=== PATIENT | male | born 1975 | race Caucasian/White ===

== ENCOUNTER 2018-10-06 14:51 | Emergency (ER) | payer BC, SELFPAY ==
[2018-10-06] MEDS ORDERED: Fentanyl 100 MCG/2 ML VIAL ONE (15:33)
[2018-10-06] MEDS ORDERED: Midazolam HCl 5 mg/ml Vial ONE (15:34)
[2018-10-06] MEDS ORDERED: Sodium Chloride 0.9% 1,000 ML ONE (15:34)
--- NOTE | 2018-10-06 15:57 | RAD ---
RADIOGRAPH RIGHT SHOULDER 3 VIEWS: Date: 10/06/18 Time: 1503 hours HISTORY: 43-year-old male status post acute right shoulder traumatic injury due to fall. COMPARISON: None. FINDINGS: The humeral head is dislocated anteriorly and inferiorly relative to the glenoid. No definite acute f racture is identified. IMPRESSION: Acute, traumatic, anterior-inferior dislocation of the glenohumeral joint. POS: [facility]
--- NOTE | 2018-10-06 17:04 | RAD ---
RADIOGRAPH RIGHT SHOULDER 3 VIEWS: DATE: 10/06/2018. TIME: 4:06 p.m. HISTORY: A 43-year-old male with traumatic right anterior shoulder dislocation, status post reduction. COMPARISON: 10/06/2018, 3:03 p.m. FINDINGS: The glenohumeral joint is now located. There is a Hill-Sachs defect at the superolateral aspect of t he humeral head. IMPRESSION: Successful reduction of the acute, traumatic, anterior-inferior dislocation of the glenohumeral joint . POS: [facility]
== END 2018-10-06 17:15 | disposition home or self-care (01) ==
LOC: NAV ERS 14:51
DX: S43.014A Anterior dislocation of right humerus, initial encounter (principal); S43.034A Inferior dislocation of right humerus, initial encounter; F17.290 Nicotine dependence, other tobacco product, uncomplicated; W18.30XA Fall on same level, unspecified, initial encounter
CPT/HCPCS: 23650; 94760; 96361; 96374; 96375; 99152; J2250; J3010; J7050

== ENCOUNTER 2018-12-15 06:30 | Emergency (ER) | payer SELFPAY ==
[2018-12-15] MEDS ORDERED: Ondansetron PF 4 MG/2 ML Vial ONE (07:07)
[2018-12-15] MEDS ORDERED: Sodium Chloride 0.9% 100 ML ONE (07:07)
[2018-12-15] MEDS ORDERED: Morphine 4 MG/ML VIAL ONE (07:07)
[2018-12-15] MEDS ORDERED: CEFAZOLIN 1 GM VIAL ONE (07:07)
[2018-12-15] MEDS ORDERED: Adacel (T-DAP) 0.5 ML SYRINGE ONE (07:21)
== END 2018-12-15 08:32 | disposition short-term general hospital (02) ==
LOC: NAV ERS 06:30
DX: S05.31XA Ocular laceration without prolapse or loss of intraocular tissue, right eye, initial encounter (principal); F17.210 Nicotine dependence, cigarettes, uncomplicated; W22.8XXA Striking against or struck by other objects, initial encounter
CPT/HCPCS: 90471; 90715; 96365; 96375; J0690; J2270; J2405; J3490